=== PATIENT | male | born 1985 | race Asian ===

== ENCOUNTER 2018-07-11 20:24 | Inpatient (IN) | payer OTHER ==
[2018-07-11] MEDS: CEFTRIAXONE 1 GM/50 ML (PMX) 50 ML IVPB (21:40)
[2018-07-11] MEDS: SODIUM CHLORIDE 0.9% 1L BAG IV* (21:41)
[2018-07-11 21:45] LABS: ADD MAN DIFF? NO
[2018-07-11 21:52] LABS: BASOPHILS % 0.7 % (0.0-2.0); EOSINOPHILS # 0.2 10^3/ul (0.0-0.5); EOSINOPHILS % 3.1 % (0.0-7.0); HEMATOCRIT 40.6 % (42.0-52.0); HEMOGLOBIN 13.3 g/dl (14.0-18.0); LYMPHOCYTES # 1.9 10^3/ul (0.8-2.9); LYMPHOCYTES % 33.1 % (15.0-51.0); MEAN CORPUSCULAR HEMOGLOBIN 30.7 pg (29.0-33.0); MEAN CORPUSCULAR HGB CONC 32.8 g/dl (32.0-37.0); MEAN CORPUSCULAR VOLUME 93.8 fl (82.0-101.0); MEAN PLATELET VOLUME 10.5 fl (7.4-10.4); MONOCYTE # 0.4 10^3/ul (0.3-0.9); MONOCYTES % 6.9 % (0.0-11.0); NEUTROPHIL # 3.3 10^3/ul (1.6-7.5); NEUTROPHILS % 55.7 % (39.0-77.0); PLATELET COUNT 225 10^3/UL (140-415); RED BLOOD COUNT 4.33 10^6/ul (4.70-6.10); RED CELL DISTRIBUTION WIDTH 12.4 % (11.5-14.5)
[2018-07-11 21:52] LABS: WHITE BLOOD COUNT 5.8 10^3/ul (4.8-10.8)
[2018-07-11 22:12] LABS: ALANINE AMINOTRANSFERASE 29 IU/L (13-69); ALBUMIN 4.3 g/dl (3.3-4.9); ALBUMIN/GLOBULIN RATIO 1.07; ALKALINE PHOSPHATASE 64 IU/L (42-121); ANION GAP 12 (5-13); ASPARTATE AMINO TRANSFERASE 47 IU/L (15-46); BILIRUBIN,INDIRECT 0.4 mg/dl (0-1.1); BILIRUBIN,TOTAL 0.4 mg/dl (0.2-1.3); BLOOD UREA NITROGEN 21 mg/dl (7-20); CALCIUM 9.5 mg/dl (8.4-10.2); CARBON DIOXIDE 29 mmol/L (21-31); CHLORIDE 116 mmol/L (97-110); CREATININE 0.71 mg/dl (0.61-1.24); Estimated GFR > 60 mL/min (>60); GLUCOSE 91 mg/dl (70-220); INR 0.95; POTASSIUM 3.1 mmol/L (3.5-5.1); PROTIME 12.8 Sec (11.9-14.9); SODIUM 157 mmol/L (135-144); TOTAL PROTEIN 8.3 g/dl (6.1-8.1)
[2018-07-11 22:13] LABS: PARTIAL THROMBOPLASTIN TIME 35.7 Sec (23.0-35.0)
[2018-07-11 22:13] LABS: LACTIC ACID 5.3 mmol/L (0.5-2.0)
[2018-07-11 22:23] LABS: TROPONIN-I < 0.012 ng/ml (0.000-0.120)
[2018-07-11] MEDS ORDERED: ACETAMINOPHEN 325 MG TAB PO (23:00)
[2018-07-11] MEDS: POTASSIUM CHLORIDE 100 ML IVPB (23:13)
[2018-07-11] MEDS: ONDANSETRON 4 MG INJ IV (23:13)
[2018-07-11 23:53] LABS: LACTIC ACID 1.1 mmol/L (0.5-2.0)
[2018-07-12 01:38] LABS: LACTIC ACID 1.5 mmol/L (0.5-2.0)
[2018-07-12] MEDS: POTASSIUM CHLORIDE 100 ML IVPB ×3 (01:43→23:14)
[2018-07-12 02:11] LABS: ADD UMIC NO; UR ASCORBIC ACID NEGATIVE (NEGATIVE); UR BILIRUBIN (Dip) NEGATIVE (NEGATIVE); UR BLOOD (Dip) NEGATIVE (NEGATIVE); UR CLARITY CLEAR (CLEAR); UR COLOR YELLOW (YELLOW); UR GLUCOSE (Dip) NEGATIVE (NEGATIVE); UR KETONES (Dip) TRACE mg/dL (NEGATIVE); UR LEUKOCYTE ESTERASE (Dip) NEGATIVE Leu/ul (NEGATIVE); UR NITRITE (Dip) NEGATIVE (NEGATIVE); UR SPECIFIC GRAVITY (Dip) 1.021 (1.003-1.030); UR TOTAL PROTEIN (Dip) NEGATIVE (NEGATIVE); UR UROBILINOGEN (Dip) NEGATIVE (NEGATIVE)
[2018-07-12] MEDS ORDERED: ACETAMINOPHEN 325 MG TAB PO (03:30)
[2018-07-12] MEDS ORDERED: ONDANSETRON 4 MG INJ IV (03:30)
[2018-07-12] MEDS ORDERED: NACL 0.9% 3 ML SYG IV (03:30)
[2018-07-12 07:02] LABS: ADD MAN DIFF? NO
[2018-07-12 07:24] LABS: BASOPHILS % 0.4 % (0.0-2.0); EOSINOPHILS # 0.2 10^3/ul (0.0-0.5); EOSINOPHILS % 3.1 % (0.0-7.0); HEMATOCRIT 32.8 % (42.0-52.0); HEMOGLOBIN 10.6 g/dl (14.0-18.0); LYMPHOCYTES # 2.2 10^3/ul (0.8-2.9); MEAN CORPUSCULAR HEMOGLOBIN 30.3 pg (29.0-33.0); MEAN CORPUSCULAR HGB CONC 32.3 g/dl (32.0-37.0); MEAN CORPUSCULAR VOLUME 93.7 fl (82.0-101.0); MEAN PLATELET VOLUME 10.3 fl (7.4-10.4); MONOCYTE # 0.4 10^3/ul (0.3-0.9); MONOCYTES % 6.4 % (0.0-11.0); NEUTROPHIL # 3.8 10^3/ul (1.6-7.5); NEUTROPHILS % 56.7 % (39.0-77.0); PLATELET COUNT 189 10^3/UL (140-415); RED CELL DISTRIBUTION WIDTH 12.4 % (11.5-14.5)
[2018-07-12 07:24] LABS: WHITE BLOOD COUNT 6.7 10^3/ul (4.8-10.8)
[2018-07-12 07:29] LABS: ALANINE AMINOTRANSFERASE 23 IU/L (13-69); ALBUMIN 3.1 g/dl (3.3-4.9); ALBUMIN/GLOBULIN RATIO 1.03; ALKALINE PHOSPHATASE 41 IU/L (42-121); ANION GAP 9 (5-13); ASPARTATE AMINO TRANSFERASE 29 IU/L (15-46); BILIRUBIN,INDIRECT 0.4 mg/dl (0-1.1); BILIRUBIN,TOTAL 0.4 mg/dl (0.2-1.3); BLOOD UREA NITROGEN 15 mg/dl (7-20); CARBON DIOXIDE 28 mmol/L (21-31); CHLORIDE 117 mmol/L (97-110); CREATININE 0.68 mg/dl (0.61-1.24); Estimated GFR > 60 mL/min (>60); GLUCOSE 80 mg/dl (70-220); MAGNESIUM 1.6 mg/dl (1.7-2.5); SODIUM 154 mmol/L (135-144); TOTAL PROTEIN 6.1 g/dl (6.1-8.1)
[2018-07-12] MEDS: DEXTROSE 5% 1,000 ML IV ×3 (09:44→20:59)
[2018-07-12] MEDS: HEPARIN 5,000 UNIT/1 ML VIAL SC ×3 (09:45→21:00)
[2018-07-12] MEDS: MAGNESIUM SULFATE 2 GM/50 ML 50 ML IVPB (11:33)
[2018-07-12 11:51] LABS: ANION GAP 9 (5-13); BLOOD UREA NITROGEN 14 mg/dl (7-20); CALCIUM 8.2 mg/dl (8.4-10.2); CARBON DIOXIDE 29 mmol/L (21-31); CHLORIDE 116 mmol/L (97-110); CREATININE 0.65 mg/dl (0.61-1.24); Estimated GFR > 60 mL/min (>60); GLUCOSE 87 mg/dl (70-220); SODIUM 154 mmol/L (135-144)
[2018-07-12 13:34] LABS: PREALBUMIN 13.3 mg/dl (17.6-36.0)
[2018-07-12 16:13] LABS: ANION GAP 9 (5-13); BLOOD UREA NITROGEN 12 mg/dl (7-20); CALCIUM 8.2 mg/dl (8.4-10.2); CARBON DIOXIDE 29 mmol/L (21-31); CHLORIDE 111 mmol/L (97-110); Estimated GFR > 60 mL/min (>60); GLUCOSE 100 mg/dl (70-220); POTASSIUM 3.1 mmol/L (3.5-5.1); SODIUM 149 mmol/L (135-144)
[2018-07-12 19:37] LABS: ANION GAP 7 (5-13); BLOOD UREA NITROGEN 10 mg/dl (7-20); CALCIUM 8.1 mg/dl (8.4-10.2); CARBON DIOXIDE 31 mmol/L (21-31); CHLORIDE 109 mmol/L (97-110); CREATININE 0.58 mg/dl (0.61-1.24); Estimated GFR > 60 mL/min (>60); GLUCOSE 91 mg/dl (70-220); SODIUM 147 mmol/L (135-144)
[2018-07-12 19:53] LABS: POTASSIUM 2.9 mmol/L (3.5-5.1)
[2018-07-13 06:49] LABS: ADD MAN DIFF? NO
[2018-07-13 06:56] LABS: BASOPHILS % 0.4 % (0.0-2.0); EOSINOPHILS # 0.3 10^3/ul (0.0-0.5); HEMATOCRIT 30.1 % (42.0-52.0); HEMOGLOBIN 10.2 g/dl (14.0-18.0); LYMPHOCYTES # 1.9 10^3/ul (0.8-2.9); LYMPHOCYTES % 25.7 % (15.0-51.0); MEAN CORPUSCULAR HEMOGLOBIN 30.9 pg (29.0-33.0); MEAN CORPUSCULAR HGB CONC 33.9 g/dl (32.0-37.0); MEAN CORPUSCULAR VOLUME 91.2 fl (82.0-101.0); MEAN PLATELET VOLUME 10.4 fl (7.4-10.4); MONOCYTE # 0.4 10^3/ul (0.3-0.9); MONOCYTES % 5.7 % (0.0-11.0); NEUTROPHIL # 4.7 10^3/ul (1.6-7.5); NEUTROPHILS % 63.8 % (39.0-77.0); PLATELET COUNT 181 10^3/UL (140-415); RED CELL DISTRIBUTION WIDTH 11.9 % (11.5-14.5)
[2018-07-13 06:56] LABS: WHITE BLOOD COUNT 7.3 10^3/ul (4.8-10.8)
[2018-07-13 07:24] LABS: ANION GAP 4 (5-13); BLOOD UREA NITROGEN 10 mg/dl (7-20); CARBON DIOXIDE 30 mmol/L (21-31); CHLORIDE 112 mmol/L (97-110); CREATININE 0.74 mg/dl (0.61-1.24); Estimated GFR > 60 mL/min (>60); GLUCOSE 147 mg/dl (70-220); PHOSPHORUS 3.8 mg/dl (2.5-4.9); POTASSIUM 3.2 mmol/L (3.5-5.1); SODIUM 146 mmol/L (135-144)
[2018-07-13] MEDS: HEPARIN 5,000 UNIT/1 ML VIAL SC (09:00)
[2018-07-13] MEDS: DEXTROSE 5%-0.45% NACL 1,000 ML IV ×2 (10:26→21:30)
[2018-07-13] MEDS: POTASSIUM CHLORIDE (SR) 20 MEQ TAB PO (11:56)
[2018-07-13] MEDS: PANTOPRAZOLE (EC) 40 MG TAB PO (11:56)
[2018-07-14] MEDS: DEXTROSE 5%-0.45% NACL 1,000 ML IV ×3 (05:14→22:03)
[2018-07-14] MEDS: PANTOPRAZOLE (EC) 40 MG TAB PO (05:15)
[2018-07-14 06:11] LABS: ADD MAN DIFF? NO
[2018-07-14 06:14] LABS: WHITE BLOOD COUNT 7.3 10^3/ul (4.8-10.8)
[2018-07-14 06:14] LABS: BASOPHILS % 0.5 % (0.0-2.0); EOSINOPHILS # 0.3 10^3/ul (0.0-0.5); EOSINOPHILS % 4.1 % (0.0-7.0); HEMOGLOBIN 12.4 g/dl (14.0-18.0); LYMPHOCYTES % 26.7 % (15.0-51.0); MEAN CORPUSCULAR HEMOGLOBIN 30.4 pg (29.0-33.0); MEAN CORPUSCULAR HGB CONC 33.5 g/dl (32.0-37.0); MEAN CORPUSCULAR VOLUME 90.7 fl (82.0-101.0); MEAN PLATELET VOLUME 10.8 fl (7.4-10.4); MONOCYTE # 0.5 10^3/ul (0.3-0.9); MONOCYTES % 6.8 % (0.0-11.0); NEUTROPHIL # 4.5 10^3/ul (1.6-7.5); NEUTROPHILS % 61.6 % (39.0-77.0); PLATELET COUNT 217 10^3/UL (140-415); RED BLOOD COUNT 4.08 10^6/ul (4.70-6.10); RED CELL DISTRIBUTION WIDTH 12.3 % (11.5-14.5)
[2018-07-14 06:54] LABS: ANION GAP 7 (5-13); BLOOD UREA NITROGEN 8 mg/dl (7-20); CARBON DIOXIDE 32 mmol/L (21-31); CHLORIDE 109 mmol/L (97-110); CREATININE 0.67 mg/dl (0.61-1.24); Estimated GFR > 60 mL/min (>60); GLUCOSE 108 mg/dl (70-220); POTASSIUM 3.8 mmol/L (3.5-5.1); SODIUM 148 mmol/L (135-144)
[2018-07-14 13:12] LABS: IRON 45 ug/dl (35-150)
[2018-07-14 13:22] LABS: % IRON SATURATION 21 % SAT (22-52); TOTAL IRON BINDING CAPACITY 215 ug/dl (241-421)
[2018-07-14 13:44] LABS: HEPATITIS B SURFACE ANTIGEN NEGATIVE (NEGATIVE)
[2018-07-14 14:59] LABS: HEPATITIS C VIRAL ANTIBODY NEGATIVE (NEGATIVE)
[2018-07-14] MEDS: CYANOCOBALAMIN 500 MCG TAB PO (16:07)
[2018-07-14] MEDS: OLANZAPINE 5 MG TAB PO ×2 (16:07→21:28)
[2018-07-14] MEDS: LACTATED RINGER'S 500 ML IV (16:08)
[2018-07-14] MEDS: POTASSIUM CHLORIDE 100 ML IVPB (17:38)
[2018-07-14] MEDS: CYANOCOBALAMIN 1000 MCG INJ SC (17:42)
[2018-07-14] MEDS: SOD FERRIC GLUC COMPLX 125 MG in SOD CHLORIDE 0.9% 100 ML IVPB (19:03)
[2018-07-15] MEDS: PANTOPRAZOLE (EC) 40 MG TAB PO (05:43)
[2018-07-15 06:08] LABS: ADD MAN DIFF? NO
[2018-07-15 06:18] LABS: BASOPHILS % 0.5 % (0.0-2.0); EOSINOPHILS # 0.3 10^3/ul (0.0-0.5); EOSINOPHILS % 4.5 % (0.0-7.0); HEMATOCRIT 31.2 % (42.0-52.0); HEMOGLOBIN 10.4 g/dl (14.0-18.0); LYMPHOCYTES # 2.2 10^3/ul (0.8-2.9); LYMPHOCYTES % 38.2 % (15.0-51.0); MEAN CORPUSCULAR HEMOGLOBIN 30.7 pg (29.0-33.0); MEAN CORPUSCULAR HGB CONC 33.3 g/dl (32.0-37.0); MEAN PLATELET VOLUME 10.4 fl (7.4-10.4); MONOCYTE # 0.5 10^3/ul (0.3-0.9); MONOCYTES % 8.1 % (0.0-11.0); NEUTROPHIL # 2.8 10^3/ul (1.6-7.5); NEUTROPHILS % 48.2 % (39.0-77.0); PLATELET COUNT 164 10^3/UL (140-415); RED BLOOD COUNT 3.39 10^6/ul (4.70-6.10); RED CELL DISTRIBUTION WIDTH 12.1 % (11.5-14.5)
[2018-07-15 06:18] LABS: WHITE BLOOD COUNT 5.8 10^3/ul (4.8-10.8)
[2018-07-15 06:58] LABS: ANION GAP 4 (5-13); BLOOD UREA NITROGEN 7 mg/dl (7-20); CALCIUM 8.5 mg/dl (8.4-10.2); CARBON DIOXIDE 32 mmol/L (21-31); CHLORIDE 110 mmol/L (97-110); CREATININE 0.68 mg/dl (0.61-1.24); Estimated GFR > 60 mL/min (>60); GLUCOSE 110 mg/dl (70-220); POTASSIUM 3.2 mmol/L (3.5-5.1); SODIUM 146 mmol/L (135-144)
[2018-07-15] MEDS: DEXTROSE 5%-0.45% NACL 1,000 ML IV (09:03)
[2018-07-15] MEDS: OLANZAPINE 5 MG TAB PO ×2 (09:54→20:17)
[2018-07-15] MEDS: CYANOCOBALAMIN 500 MCG TAB PO (09:54)
[2018-07-15] MEDS: SOD FERRIC GLUC COMPLX 125 MG in SOD CHLORIDE 0.9% 100 ML IVPB (15:52)
[2018-07-15] MEDS: POTASSIUM CHLORIDE 100 ML IVPB ×3 (16:59→22:58)
[2018-07-15] MEDS: MIRTAZAPINE 15 MG TAB PO (18:14)
[2018-07-15] MEDS: DIVALPROEX (ER) 250 MG TAB PO (20:17)
[2018-07-16] MEDS: PANTOPRAZOLE (EC) 40 MG TAB PO (05:42)
[2018-07-16] MEDS: DEXTROSE 5%-0.45% NACL 1,000 ML IV (05:42)
[2018-07-16 07:17] LABS: ADD MAN DIFF? NO
[2018-07-16 07:18] LABS: BASOPHILS % 0.7 % (0.0-2.0); EOSINOPHILS # 0.3 10^3/ul (0.0-0.5); EOSINOPHILS % 4.4 % (0.0-7.0); HEMATOCRIT 36.6 % (42.0-52.0); HEMOGLOBIN 12.1 g/dl (14.0-18.0); LYMPHOCYTES # 2.1 10^3/ul (0.8-2.9); LYMPHOCYTES % 33.8 % (15.0-51.0); MEAN CORPUSCULAR HEMOGLOBIN 30.8 pg (29.0-33.0); MEAN CORPUSCULAR HGB CONC 33.1 g/dl (32.0-37.0); MEAN CORPUSCULAR VOLUME 93.1 fl (82.0-101.0); MEAN PLATELET VOLUME 10.6 fl (7.4-10.4); MONOCYTE # 0.4 10^3/ul (0.3-0.9); MONOCYTES % 6.4 % (0.0-11.0); NEUTROPHIL # 3.3 10^3/ul (1.6-7.5); PLATELET COUNT 205 10^3/UL (140-415); RED BLOOD COUNT 3.93 10^6/ul (4.70-6.10); RED CELL DISTRIBUTION WIDTH 12.3 % (11.5-14.5)
[2018-07-16 07:18] LABS: WHITE BLOOD COUNT 6.1 10^3/ul (4.8-10.8)
[2018-07-16 07:56] LABS: ANION GAP 6 (5-13); BLOOD UREA NITROGEN 6 mg/dl (7-20); CALCIUM 8.7 mg/dl (8.4-10.2); CARBON DIOXIDE 33 mmol/L (21-31); CHLORIDE 109 mmol/L (97-110); CREATININE 0.82 mg/dl (0.61-1.24); Estimated GFR > 60 mL/min (>60); GLUCOSE 87 mg/dl (70-220); POTASSIUM 3.8 mmol/L (3.5-5.1); SODIUM 148 mmol/L (135-144)
[2018-07-16] MEDS: POLYETHYLENE GLYCOL 17 GM PACKET PO (09:00)
[2018-07-16] MEDS: OLANZAPINE 5 MG TAB PO ×2 (09:00→21:15)
[2018-07-16] MEDS: CYANOCOBALAMIN 500 MCG TAB PO (09:01)
[2018-07-16] MEDS: D5W + KCL 20 MEQ 1,000 ML IV (12:22)
[2018-07-16] MEDS: ENOXAPARIN 30 MG/0.3 ML SYG SC (14:38)
[2018-07-16] MEDS: DIVALPROEX (ER) 250 MG TAB PO (21:15)
[2018-07-16] MEDS: MIRTAZAPINE 15 MG TAB PO (21:15)
[2018-07-17] MEDS: D5W + KCL 20 MEQ 1,000 ML IV ×4 (00:30→15:50)
[2018-07-17] MEDS: PANTOPRAZOLE (EC) 40 MG TAB PO (06:00)
[2018-07-17 07:21] LABS: ADD MAN DIFF? NO
[2018-07-17 07:26] LABS: BASOPHILS % 0.5 % (0.0-2.0); EOSINOPHILS # 0.2 10^3/ul (0.0-0.5); EOSINOPHILS % 4.2 % (0.0-7.0); HEMATOCRIT 30.8 % (42.0-52.0); HEMOGLOBIN 10.2 g/dl (14.0-18.0); LYMPHOCYTES # 1.9 10^3/ul (0.8-2.9); LYMPHOCYTES % 33.9 % (15.0-51.0); MEAN CORPUSCULAR HEMOGLOBIN 30.7 pg (29.0-33.0); MEAN CORPUSCULAR HGB CONC 33.1 g/dl (32.0-37.0); MEAN CORPUSCULAR VOLUME 92.8 fl (82.0-101.0); MEAN PLATELET VOLUME 10.4 fl (7.4-10.4); MONOCYTE # 0.4 10^3/ul (0.3-0.9); NEUTROPHIL # 2.9 10^3/ul (1.6-7.5); NEUTROPHILS % 52.7 % (39.0-77.0); PLATELET COUNT 186 10^3/UL (140-415); RED BLOOD COUNT 3.32 10^6/ul (4.70-6.10); RED CELL DISTRIBUTION WIDTH 12.5 % (11.5-14.5)
[2018-07-17 07:26] LABS: WHITE BLOOD COUNT 5.5 10^3/ul (4.8-10.8)
[2018-07-17 07:48] LABS: ANION GAP 5 (5-13); BLOOD UREA NITROGEN 12 mg/dl (7-20); CALCIUM 8.4 mg/dl (8.4-10.2); CARBON DIOXIDE 33 mmol/L (21-31); CHLORIDE 107 mmol/L (97-110); CREATININE 0.98 mg/dl (0.61-1.24); Estimated GFR > 60 mL/min (>60); GLUCOSE 80 mg/dl (70-220); POTASSIUM 3.6 mmol/L (3.5-5.1); SODIUM 145 mmol/L (135-144)
[2018-07-17] MEDS: CYANOCOBALAMIN 500 MCG TAB PO (08:58)
[2018-07-17] MEDS: OLANZAPINE 5 MG TAB PO ×2 (08:58→20:38)
[2018-07-17] MEDS: ENOXAPARIN 30 MG/0.3 ML SYG SC (09:00)
[2018-07-17] MEDS: POLYETHYLENE GLYCOL 17 GM PACKET PO (09:00)
[2018-07-17 12:03] LABS: NIL 0.03 IU/mL; QUANTIFERON(R)-TB GOLD NEGATIVE (NEGATIVE)
[2018-07-17] MEDS: MIRTAZAPINE 15 MG TAB PO (19:50)
[2018-07-17] MEDS: DIVALPROEX (ER) 250 MG TAB PO (20:37)
[2018-07-18] MEDS: D5W + KCL 20 MEQ 1,000 ML IV ×2 (01:30→04:45)
[2018-07-18 05:32] LABS: ADD MAN DIFF? NO
[2018-07-18 05:36] LABS: BASOPHIL # 0.1 10^3/ul (0.0-0.1); BASOPHILS % 0.7 % (0.0-2.0); EOSINOPHILS # 0.3 10^3/ul (0.0-0.5); EOSINOPHILS % 3.7 % (0.0-7.0); HEMATOCRIT 34.5 % (42.0-52.0); HEMOGLOBIN 11.4 g/dl (14.0-18.0); LYMPHOCYTES # 1.8 10^3/ul (0.8-2.9); LYMPHOCYTES % 27.2 % (15.0-51.0); MEAN CORPUSCULAR HEMOGLOBIN 30.6 pg (29.0-33.0); MEAN CORPUSCULAR VOLUME 92.7 fl (82.0-101.0); MONOCYTE # 0.5 10^3/ul (0.3-0.9); MONOCYTES % 7.1 % (0.0-11.0); NEUTROPHILS % 59.8 % (39.0-77.0); PLATELET COUNT 198 10^3/UL (140-415); RED BLOOD COUNT 3.72 10^6/ul (4.70-6.10); RED CELL DISTRIBUTION WIDTH 12.5 % (11.5-14.5)
[2018-07-18 05:36] LABS: WHITE BLOOD COUNT 6.7 10^3/ul (4.8-10.8)
[2018-07-18 06:16] LABS: ANION GAP 5 (5-13); BLOOD UREA NITROGEN 14 mg/dl (7-20); CALCIUM 8.7 mg/dl (8.4-10.2); CARBON DIOXIDE 34 mmol/L (21-31); CHLORIDE 105 mmol/L (97-110); CREATININE 0.89 mg/dl (0.61-1.24); Estimated GFR > 60 mL/min (>60); GLUCOSE 118 mg/dl (70-220); POTASSIUM 3.6 mmol/L (3.5-5.1); SODIUM 144 mmol/L (135-144)
[2018-07-18] MEDS: PANTOPRAZOLE (EC) 40 MG TAB PO (06:19)
[2018-07-18] MEDS: ENOXAPARIN 30 MG/0.3 ML SYG SC (09:00)
[2018-07-18] MEDS: POLYETHYLENE GLYCOL 17 GM PACKET PO (09:04)
[2018-07-18] MEDS: OLANZAPINE 5 MG TAB PO ×2 (09:04→20:37)
[2018-07-18] MEDS: CYANOCOBALAMIN 500 MCG TAB PO (09:04)
[2018-07-18] MEDS: DIVALPROEX (ER) 250 MG TAB PO (20:37)
[2018-07-18] MEDS: MIRTAZAPINE 15 MG TAB PO (20:37)
[2018-07-19] MEDS: PANTOPRAZOLE (EC) 40 MG TAB PO (05:41)
[2018-07-19 07:54] LABS: ANION GAP 6 (5-13); BLOOD UREA NITROGEN 20 mg/dl (7-20); CALCIUM 9.6 mg/dl (8.4-10.2); CARBON DIOXIDE 38 mmol/L (21-31); CHLORIDE 101 mmol/L (97-110); CREATININE 0.76 mg/dl (0.61-1.24); Estimated GFR > 60 mL/min (>60); GLUCOSE 81 mg/dl (70-220); POTASSIUM 4.1 mmol/L (3.5-5.1); SODIUM 145 mmol/L (135-144)
[2018-07-19] MEDS: POLYETHYLENE GLYCOL 17 GM PACKET PO (08:49)
[2018-07-19] MEDS: OLANZAPINE 5 MG TAB PO (08:49)
[2018-07-19] MEDS: ENOXAPARIN 30 MG/0.3 ML SYG SC (08:49)
[2018-07-19] MEDS: CYANOCOBALAMIN 500 MCG TAB PO (08:49)
== END 2018-07-19 15:40 | disposition home health service (06) | DRG 640 ==
LOC: TEL 07-14 21:02 → 5EC 07-19 05:49 → E/R 20:24 → TEL 22:35 → 5EC 07-15 08:25
DX: E86.0 Dehydration (principal); E43 Unspecified severe protein-calorie malnutrition; Z68.1 Body mass index [BMI] 19.9 or less, adult; R64 Cachexia; F20.2 Catatonic schizophrenia; F31.32 Bipolar disorder, current episode depressed, moderate; E87.0 Hyperosmolality and hypernatremia; F79 Unspecified intellectual disabilities; F42.9 Obsessive-compulsive disorder, unspecified; F32.9 Major depressive disorder, single episode, unspecified; R00.0 Tachycardia, unspecified; E87.8 Other disorders of electrolyte and fluid balance, not elsewhere classified; E87.6 Hypokalemia; E83.42 Hypomagnesemia; D64.9 Anemia, unspecified; E88.09 Other disorders of plasma-protein metabolism, not elsewhere classified; E53.8 Deficiency of other specified B group vitamins
CPT/HCPCS: 36415; 71045; 80048; 80053; 81003; 82607; 83540; 83605; 83735; 84100; 84134; 84443; 84484; 85025; 85610; 85730; 86480; 86803; 87040-91; 87086; 87340; 90686; 92610; 93005; 96365; 97110; 97116; 97162; 97530; 99291-25